=== PATIENT | male | born 1975 | race African-American/Black ===

== ENCOUNTER 2017-06-11 19:54 | Emergency (ER) | payer OTHER ==
--- NOTE | 2017-06-11 21:21 | RAD ---
Cervical spine CT without contrast History: Fall, left-sided neck pain Technique: Noncontrast CT imaging was performed of the cervical spine. Multiplanar images are reviewed. Exposure: One or more of the following individualized dose reduction techniques were utilized for this examination: 1. Automated exposure control 2. Adjustment of the mA and/or kV according to patient size 3. Use of iterative reconstruction technique. Comparison: MRI cervical spine exam August 03, 2015 Findings: No cervical spine acute fracture is identified. Vertebral body stature is preserved. AP is alignment is within normal limits. Atlanto-axial distance is within normal limits. There is appropriate alignment of lateral masses of C1 relative to C2. Occipital condylar-C1 relationship is maintained. Intervertebral disc spaces are adequate. There is mild spondylosis C3-4. There is uncovertebral degenerative change greatest at C3-4, C4-5, and on the right at C5-6. There is more significant narrowing of the right C3-4 neural foramen. There is mild levoscoliosis of the cervical spine. There is incomplete unification of posterior arch of C1 on a developmental basis. Impression: 1. No acute cervical spine fracture is identified. 2. Uncovertebral degenerative change contributes to neural foramina compromise greatest on the right at C3-4. Electronically signed by: Pete Mcknight MD (06/11/2017 9:18 PM) [facility]
[2017-06-11] MEDS ORDERED: CYCL10TA2 PO (22:20)
[2017-06-11] MEDS ORDERED: NAPR500T8 PO (22:20)
--- NOTE | 2017-06-11 22:20 | PHYS DOC ---
Past Medical History Past Medical History: No Pertinent History Past Surgical History: No Surgical History Alcohol Use: None Drug Use: None Adult General Chief Complaint Chief Complaint: MECHANICAL FALL HPI HPI Patient is a 41 year old male with no significant medical history who presents today with left shoulder pain mild in nature worse on range of motion as well as left lateral neck pain worse on range of motion that began yesterday after he fell on his shoulder. Patient denies any loss of consciousness. He states he tripped on concrete and fell down. Review of Systems Review of Systems Constitutional: Denies fever or chills [] Eyes: Denies change in visual acuity, redness, or eye pain [] HENT: Denies nasal congestion or sore throat [] Respiratory: Denies cough or shortness of breath [] Cardiovascular: No additional information not addressed in HPI [] GI: Denies abdominal pain, nausea, vomiting, bloody stools or diarrhea [] : Denies dysuria or hematuria [] Musculoskeletal: Left shoulder and neck pain Integument: Denies rash or skin lesions [] Neurologic: Denies headache, focal weakness or sensory changes [] Endocrine: Denies polyuria or polydipsia [] Allergies Allergies Allergies Coded Allergies Type Severity Reaction Last Updated Verified No Known Drug Allergies 07/04/15 No Physical Exam Physical Exam Constitutional: Well developed, well nourished, no acute distress, non-toxic appearance. [] HENT: Normocephalic, atraumatic, bilateral external ears normal, oropharynx moist, no oral exudates, nose normal. [] Eyes: PERRLA, EOMI, conjunctiva normal, no discharge. [] Neck: Normal range of motion, diffuse paraspinal muscle tenderness to the left lateral spine, no midline cervical spine tenderness, supple, no stridor. [] Cardiovascular:Heart rate regular rhythm, no murmur [] Lungs & Thorax: Bilateral breath sounds clear to auscultation [] Abdomen: Bowel sounds normal, soft, no tenderness, no masses, no pulsatile masses. [] Skin: Warm, dry, no erythema, no rash. [] Back: No tenderness, no CVA tenderness. [] Extremities: Left shoulder with no obvious deformity. No tenderness of the left shoulder. Full range of motion to the left shoulder including abduction and adduction. +2 left radial pulse. Adequate radial medial and ulnar sensation to the left upper extremity. Cap refill less than 2 seconds the left upper extremity. Sensation intact to the left upper extremity. Neurologic: Alert and oriented X 3, normal motor function, normal sensory function, no focal deficits noted. [] Psychologic: Affect normal, judgement normal, mood normal. [] EKG EKG [] Radiology/Procedures Radiology/Procedures [] Course & Med Decision Making Course & Med Decision Making Pertinent Labs and Imaging studies reviewed. (See chart for details) Patient is in the ED with neck pain and shoulder pain after falling yesterday. Cervical spine CT is negative for any acute findings. Left shoulder x-rays [address] Nogueira are negative for any acute findings. CT was noted for arthritis in the cervical spine. Patient has a PCP. Recommended following up in 1-2 weeks. Discharged with naproxen and Flexeril. Ice elevation encouraged. Dragon Disclaimer Dragon Disclaimer This electronic medical record was generated, in whole or in part, using a voice recognition dictation system. Departure Departure Impression: Primary Impression: Fall from standing Additional Impressions: Contusion of left shoulder Acute cervical sprain DJD (degenerative joint disease) of cervical spine Disposition: HOME, SELF-CARE Condition: STABLE Referrals: PREETI BAZZI (PCP) Follow-up with your doctor in one week Patient Instructions: Arthritis, Degenerative-Brief, Cervical Sprain, Easy-to- Read, Contusion, [id number], Fall Prevention and Home Safety Additional Instructions: You were seen for left shoulder pain and neck pain after falling. Your CT of the cervical spine shows you have arthritis in your neck. Your left shoulder x- rays were negative for any acute findings. Ice and elevate the affected areas. Follow-up with your doctor in 1-2 weeks. Take the prescribed pain medicines as needed. Do not drive or operate machinery on the muscle relaxer. Scripts Naproxen (NAPROXEN) 500 Mg Tablet. 1 TAB PO BID, #60 TAB 1 Refill Prov: VIOLETTA GARCES APRN 06/11/17 Cyclobenzaprine Hcl (CYCLOBENZAPRINE HCL) 10 Mg Tablet 1 TAB PO TID, #30 TAB Prov: VIOLETTA GARCES APRN 06/11/17 Problem Qualifiers Primary Impression: Fall from standing Encounter type: initial encounter Qualified Codes: W19.XXXA - Unspecified fall, initial encounter Additional Impressions: Contusion of left shoulder Encounter type: initial encounter Qualified Codes: S40.012A - Contusion of left shoulder, initial encounter Acute cervical sprain Encounter type: initial encounter Qualified Codes: S13.9XXA - Sprain of joints and ligaments of unspecified parts of neck, initial encounter DJD (degenerative joint disease) of cervical spine Spinal osteoarthritis complication: unspecified spinal osteoarthritis Qualified Codes: M47.812 - Spondylosis without myelopathy or radiculopathy, cervical region VIOLETTA GARCES RN ADVICE Jun 11, 2017 22:20
[2017-06-11 22:27] VITALS: BP 138/90
--- NOTE | 2017-06-12 08:40 | RAD ---
Left shoulder, 3 views, 06/11/2017: History: Fall, shoulder pain No acute fracture or dislocation is identified. The periarticular soft tissues are unremarkable. IMPRESSION: No acute left shoulder abnormality is detected.
== END 2017-06-11 22:25 | disposition home or self-care (01) ==
LOC: ER 19:54
DX: S13.9XXA Sprain of joints and ligaments of unspecified parts of neck, initial encounter (principal); S40.012A Contusion of left shoulder, initial encounter; M47.812 Spondylosis without myelopathy or radiculopathy, cervical region; W18.39XA Other fall on same level, initial encounter; Y93.89 Activity, other specified; Y99.8 Other external cause status; Y92.89 Other specified places as the place of occurrence of the external cause
CPT/HCPCS: 72125; 73030; 99284-25

== ENCOUNTER 2018-01-30 07:22 | Emergency (ER) | payer OTHER ==
[2018-01-30] MEDS: ASPIRIN 325 MG TABLET PO (07:43)
[2018-01-30] MEDS: ONDANSETRON PF 4 MG/2 ML VIAL. IV (07:44)
[2018-01-30 07:50] LABS: ADD MAN DIFF? NO
[2018-01-30 07:52] LABS: BASO # 0.1 x10^3/uL (0.0-0.2); BASO % 1 % (0-3); EOS # 0.2 x10^3/uL (0.0-0.7); EOS % 4 % (0-3); HEMATOCRIT 44.1 % (39.0-53.0); HEMOGLOBIN 14.3 g/dL (13.0-17.5); LYMPH # 2.5 x10^3/uL (1.0-4.8); LYMPH % 37 % (24-48); MEAN CORPUSCULAR HEMOGLOBIN 25 pg (25-35); MEAN CORPUSCULAR HGB CONC 33 g/dL (31-37); MEAN CORPUSCULAR VOLUME 78 fL (79-100); MONO # 0.6 x10^3/uL (0.0-1.1); MONO % 9 % (0-9); NEUT # 3.3 x10^3uL (1.8-7.7); NEUT % 49 % (31-73); PLATELET COUNT 287 x10^3/uL (140-400); RED BLOOD COUNT 5.65 x10^6/uL (4.30-5.70); RED CELL DISTRIBUTION WIDTH 14.8 % (11.5-14.5); WHITE BLOOD COUNT 6.7 x10^3/uL (4.0-11.0)
[2018-01-30 08:02] LABS: PROTHROMBIN TIME PATIENT 12.7 SEC (11.7-14.0)
[2018-01-30 08:05] LABS: D-DIMER < 0.27 ug/mlFEU (0.00-0.50)
[2018-01-30 08:08] LABS: ANION GAP 11 (6-14); BLOOD UREA NITROGEN 17 mg/dL (8-26); BUN/CREATININE RATIO 17 (6-20); CALCIUM 9.3 mg/dL (8.5-10.1); CARBON DIOXIDE 25 mmol/L (21-32); CHLORIDE 106 mmol/L (98-107); GFR 98.2; GLUCOSE 106 mg/dL (70-99); POTASSIUM 4.2 mmol/L (3.5-5.1); SODIUM 142 mmol/L (136-145)
[2018-01-30 08:13] LABS: ALBUMIN 3.3 g/dL (3.4-5.0); ALBUMIN/GLOBULIN RATIO 0.8 (1.0-1.7); ALK PHOS 79 U/L (46-116); ALT (SGPT) 20 U/L (16-63); AST (SGOT) 16 U/L (15-37); MAGNESIUM 1.8 mg/dL (1.8-2.4); TOTAL BILIRUBIN 0.3 mg/dL (0.2-1.0); TOTAL PROTEIN 7.2 g/dL (6.4-8.2)
[2018-01-30] MEDS ORDERED: fentaNYL PF VIAL 100 MCG/2 ML VIAL IV (08:15)
[2018-01-30 08:16] LABS: TROPONINI < 0.017 ng/mL (0.000-0.055)
[2018-01-30 08:21] LABS: THYROID STIM HORMONE (TSH) 1.569 uIU/mL (0.358-3.74)
[2018-01-30 08:24] LABS: NT-PRO BNP 6 pg/mL (0-124)
[2018-01-30 08:24] LABS: CREATINE KINASE 112 U/L (39-308)
[2018-01-30] MEDS: IPRATRPIUM/ALBUTEROL 0.5/2.5MG 3 ML NEBU. NEB (08:25)
[2018-01-30 08:33] LABS: CKMB INDEX 0.4 % (0-4); CKMB MASS < 0.5 ng/mL (0.0-3.6)
== END 2018-01-30 10:10 | disposition home or self-care (01) ==
LOC: ER 07:22
DX: R07.89 Other chest pain (principal); R06.02 Shortness of breath; R61 Generalized hyperhidrosis; R05 Cough
CPT/HCPCS: 36415; 71045; 80053; 82553; 83735; 83880; 84443; 84484; 85025; 85379; 85610; 93005; 94640; 96374; 99285-25; J2405; J7620